=== PATIENT | male | born 1960 | race Caucasian/White ===

== ENCOUNTER 2016-09-17 06:56 | Day surgery (SDC) | payer BC ==
[~2016-09-17 06:56] MED LIST: ALPRAZOLAM; NEXIUM40 M1 PO; VITAMIN B122500 MCG PO; VITAMIN D31000 UNI3 PO
== END 2016-09-17 13:22 ==
LOC: SRG 06:56 → SHSB 07:03 → ORW 09:45 → PACU 11:44 → SHSB 12:00
PROC: 0WUF4JZ Supplement Abdominal Wall with Synthetic Substitute, Percutaneous Endoscopic Approach (ICD-10-PCS; principal; 2016-09-17)
PROC: 8E0W4CZ Robotic Assisted Procedure of Trunk Region, Percutaneous Endoscopic Approach (ICD-10-PCS; 2016-09-17)
DX: K43.9 Ventral hernia without obstruction or gangrene (principal); F41.9 Anxiety disorder, unspecified; K21.9 Gastro-esophageal reflux disease without esophagitis; Z88.0 Allergy status to penicillin; Z90.49 Acquired absence of other specified parts of digestive tract; Z98.890 Other specified postprocedural states
CPT/HCPCS: C1781; C9290; J0690